=== PATIENT | female | born 1980 | race Caucasian/White ===

== ENCOUNTER 2025-03-26 15:24 | Emergency (ER) | payer OTHER ==
[~2025-03-26] VITALS: Ht 167.6 cm; Wt 104.4 kg
[2025-03-26] MEDS ORDERED: CETI10CA2 PO (15:47)
[2025-03-26] MEDS: FAMOTIDINE 20 MG TAB PO ONE (17:28)
[2025-03-26] MEDS: predniSONE 20 MG TAB PO ONE (17:28)
[2025-03-26] MEDS ORDERED: PRED20TA PO (17:59)
[2025-03-26 18:01] VITALS: BP 150/86; TEMP 97.3; O2SAT 96
== END 2025-03-26 18:19 | disposition home or self-care (01) ==
LOC: M ED 15:24
DX: T78.40XA Allergy, unspecified, initial encounter (principal); F10.10 Alcohol abuse, uncomplicated; Z79.52 Long term (current) use of systemic steroids; Z79.899 Other long term (current) drug therapy
CPT/HCPCS: 99284; J7512